=== PATIENT | female | born 1965 | race Caucasian/White ===

== ENCOUNTER → 2017-08-02 | Day surgery (SDC) | payer OTHER ==
[~2017-08-02] VITALS: Ht 162.6 cm; Wt 116.5 kg
[~2017-08-02] MED LIST: ALBUAER3 INH; DEXAMETHASONE SOD PHOS 4 MG/ML VIAL IV ONE; DIOV80TA2 PO; DO NOT ADM ANY ANTICOAGULANT DRUGS PRN; KETOROLAC TROMETHAMINE 30 MG/ML (IVP) VIAL IV PUSH ONE; KETOROLAC TROMETHAMINE 30 MG/ML (IVP) VIAL ONE; LACTATED RINGER'S 1000 ML IV PRN; LEVO50TA4 PO; LIDOCAINE 1%/EPINEPHrine 1:100,000 SOLN 20 ML VIAL ONE; LIDOCAINE HCL 1% PF 5 ML SYRINGE OTHER ONE; METOPROLOL TARTRATE 25 MG TAB PO PRN; MIDAZOLAM HCL 2 MG/2 ML VIAL ONE; MONT10TA2 PO; ONDANSETRON HCL 4 MG/2 ML VIAL IV ONE; PROPOFOL 200 MG/20 ML AMP IV ONE; ROCURONIUM INJ 50 MG/5 ML SYRINGE IV PUSH ONE; SODIUM CHLORID 0.9% 500 ML IV PRN; SUGAMMADEX SODIUM 200 MG/2 ML VIAL IV PUSH ONE; SYMB80AE INH; ZOLO100T PO
[2017-08-02 14:12] LABS: PROTHROMBIN TIME - PATIENT 10.6 SEC (9.8-11.6)
--- NOTE | 2017-08-02 16:31 | MP ---
cc: Jessica Hughes MD,Channing Lora MD DATE OF OPERATION: 08/02/2017 PREOPERATIVE DIAGNOSIS: Squamous cell carcinoma of the cervix. 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 PROCEDURE PERFORMED: Examination under anesthesia, cystoscopy and proctoscopy. SURGEON: Jessica Hughes MD INTRAOPERATIVE CONSULTATION: Dr. Abhinav Moore, Radiation Oncology. BLOOD LOSS: 20 mL. HISTORY OF PRESENT ILLNESS: A 51-year-old female status post prior supracervical hysterectomy found on recent evaluation due to bleeding to have a mass on the cervix. Biopsy was obtained. Biopsy showed invasive squamous cell carcinoma. CAT scan imaging shows an estimated 5 cm mass-like effect in the region of the cervix that is irregular, nodular in consistency. The normal fat plane between the cervix and bladder and the cervix and rectum are not well visualized on imaging. There is no overt evidence to suggest metastatic disease. She is counseled regarding recommendations to get further information to help clarify the extent of the problem. She presents now for that endeavor. She was seen in the preop holding area, where findings and plan of care are again reviewed. Questions were asked and answered. She is accompanied by her significant other. They expressed good understanding and she wanted to move forward with diagnostic procedure. FINDINGS: On exam under anesthesia, the cervix is quite firm and prominent, estimated to be 6 cm in diameter. There is obvious tumor from the 5 o'clock position, extending around clockwise to the 12 o'clock position with extension of tumor to the right and posterior upper vagina. The whole cervix itself is firm, increased vascular changes and appears to be infiltrated with tumor. On rectovaginal exam, there is retraction of the cervix toward the left upper vagina with parametrial extension. I cannot say with certainty whether or not there is tumor extension to the left pelvic sidewall. On the right side, however, there was obvious thickened nodular parametria that extends to the right pelvic sidewall. There was limited mobility in the right parametria and this is below the area where the tumor is obviously invasive to the upper vagina as well and extends into the parametria to the right pelvic sidewall. On cystoscopy, the bladder trigone is elevated due to a mass effect in the cervix, but the mucosa itself appears normal circumferentially throughout the bladder. The ureteral ostia are well visualized with good efflux of urine bilaterally. There is no obvious mass, tumor or other abnormality within the bladder. On rigid proctosigmoidoscopy to 20 cm, there is no obvious mass. No obvious nodularity or tumor invasion. There is some extrinsic compression due to the large cervical mass and visibility is adequate, but not optimal as she is not really prepped but no abnormality detected. DESCRIPTION OF PROCEDURE: She was taken to the operating room and placed in dorsal lithotomy position, after laryngeal mask anesthesia was administered, timeout was undertaken. She was identified by site recognition and hospital ID bracelet and the proposed procedure was reviewed and confirmed. Exam under anesthesia was performed with findings as described above. She was then prepped and draped in a sterile fashion. Cystoscopy was performed using a 30-degree scope with findings as described above. Dr. Abhinav Moore, Radiation Oncology came to the operating room and repeated exam under anesthesia, with speculum exam and digital exam. He concurred with the findings as described above and a pack was placed into the vagina. Rigid proctosigmoidoscopy was performed with findings as described above and the proctosigmoidoscope was withdrawn. A change sterile gloves is undertaken. The vaginal pack was removed and a sheet of Surgicel SNoW was placed across the cervical tumor and tucked into the upper vagina to assist in continued hemostasis. Preliminary and final counts were correct. There were no remaining foreign objects in the vagina other than the intentionally placed hemostatic agent. She was returned to dorsal supine position and was pending reversal of anesthesia, when I left the operating room to precede her to the postanesthesia care unit. MD RIKY Shaver/HAILEY , 03:57 PM , 04:30 PM
[2017-08-02 17:25] VITALS: BP 167/90; PULSE 64; RESP 18; TEMP 98.1; O2SAT 98
== END | disposition home or self-care (01) ==
LOC: HSDC 11:41
PROVIDERS: ATTEND Obstetrics & Gynecology Gynecologic Oncology
DX: C53.8 Malignant neoplasm of overlapping sites of cervix uteri (principal); I10 Essential (primary) hypertension; J45.909 Unspecified asthma, uncomplicated; E07.9 Disorder of thyroid, unspecified; E78.00 Pure hypercholesterolemia, unspecified; R06.02 Shortness of breath; Z01.818 Encounter for other preprocedural examination
CPT/HCPCS: 00902; 45300; 52000; 85610; 85730; 86850; 86900; 86901; J1100; J1885; J2250; J2405; J3010